=== PATIENT | female | born 1975 | race Caucasian/White ===

== ENCOUNTER 2019-07-29 22:14 | Emergency (ER) | payer BC ==
[~2019-07-29] VITALS: Ht 175.3 cm; Wt 88.5 kg
--- NOTE | 2019-07-29 22:23 | NUR ---
Patient presents to ER for chin lac after having fell onto the ground. Patient placed in Bed 2B. Patient denies dizziness at this time. No acute distress. Dr. Meehan at bedside.
[2019-07-29] MEDS ORDERED: LET TOPICAL SOLUTION 8 ML UDC ONE (22:29)
[2019-07-29] MEDS ORDERED: LET TOPICAL SOLUTION 8 ML UDC TP ONE (22:30)
[2019-07-29] MEDS ORDERED: SODIUM BICARBONATE 4.2 % (NEUT) 5 ML VIAL TP ONE (22:30)
[2019-07-29] MEDS ORDERED: CEphaleXIN 500 MG CAPSULE PO ONE ×2 (22:30→23:45)
[2019-07-29] MEDS ORDERED: LIDOCAINE 1%-EPI 1:100,000 20 ML VIAL IJ ONE (22:30)
[2019-07-29] MEDS ORDERED: CEphaleXIN 500 MG CAPSULE ONE (22:37)
[2019-07-29] MEDS ORDERED: DICYCLOMINE HCL LIQ 10 MG/5 ML UDC PO ONE (22:45)
[2019-07-29] MEDS ORDERED: DICYCLOMINE HCL LIQ 10 MG/5 ML UDC ONE (22:45)
[2019-07-29] MEDS ORDERED: ONDANSETRON ODT 4 MG TAB.RAPDIS ONE (22:45)
[2019-07-29] MEDS ORDERED: ONDANSETRON ODT 4 MG TAB.RAPDIS SL ONE (22:45)
--- NOTE | 2019-07-29 22:53 | NUR ---
Dr. Meehan at bedside to suture chin laceration.
--- NOTE | 2019-07-29 23:37 | NUR ---
Per Dr. Meehan patient is stable for discharge. DC instructions and prescription given and reviewed with patient, verbalized understanding. Left ER in stable condition, ambulated out of ER with steady gait. Denied need for help out.
[2019-07-29 23:38] VITALS: BP 133/83
== END 2019-07-29 22:36 | disposition home or self-care (01) ==
LOC: ER 22:16
DX: S01.81XA Laceration without foreign body of other part of head, initial encounter (principal); R55 Syncope and collapse; Z60.2 Problems related to living alone; W20.8XXA Other cause of strike by thrown, projected or falling object, initial encounter; Y93.89 Activity, other specified; Y92.511 Restaurant or cafe as the place of occurrence of the external cause; Y99.8 Other external cause status
CPT/HCPCS: 12013; 93005; 99283; J3490 ×2; A4663; Q0162